=== PATIENT | male | born 1995 | race Caucasian/White ===

== ENCOUNTER 2022-08-14 15:07 | Emergency (ER) | payer MEDICAID, OTHER ==
[~2022-08-14] VITALS: Ht 172.7 cm; Wt 91.0 kg
[2022-08-14 15:10] VITALS: BP 185/90
[2022-08-14 16:50] LABS: BASOPHILS % 0.3 % (0.0-2.0); EOSINOPHILS % 0.4 % (0.0-5.0); HEMATOCRIT. 45.5 % (42.0-52.0); HEMOGLOBIN. 15.7 g/dL (14.0-18.0); MEAN CORPUSCULAR VOLUME 84.2 fL (80.0-94.0); MEAN PLATELET VOLUME 8.3 fl (7.4-10.4); NEUTROPHILS % 67.3 % (40.0-76.0); PLATELET 366 x1000/uL (130-400); RED BLOOD CELL COUNT 5.41 mill/uL (4.7-6.1); RED CELL DISTRIBUTION WIDTH 13.4 % (11.6-14.6)
[2022-08-14 16:59] LABS: CHLORIDE 109 mEq/L (98-107)
[2022-08-14] MEDS ORDERED: POTASSIUM CHLORIDE 20MEQ TABLET SR PO ONE (17:30)
[2022-08-14] MEDS ORDERED: DIPHENHYDRAMINE 25MG CAPSULE PO NR (18:15)
[2022-08-14] MEDS ORDERED: DIPHENHYDRAMINE 50MG CAPSULE PO ONE (18:15)
[2022-08-14] MEDS ORDERED: LORAZEPAM 1MG TABLET PO ONE ×2 (18:15→20:15)
[2022-08-14] MEDS ORDERED: AMIT25TA9 MT (22:54)
== END 2022-08-14 23:49 | disposition home or self-care (01) ==
LOC: EDBD 15:07 → ER 15:07
DX: R29.0 Tetany (principal); I49.9 Cardiac arrhythmia, unspecified
CPT/HCPCS: 36415; 80053; 83735; 83970; 85025; 93005; 99285; Q0163